=== PATIENT | female | born 1965 | race Caucasian/White ===

== ENCOUNTER 2019-11-21 08:53 | Emergency (ER) | payer MEDICARE, OTHER ==
[2019-11-21] MEDS ORDERED: Amoxicillin/Clavulanate K 875-125 MG Tab ONE (09:28)
[2019-11-21 09:51] VITALS: BP 120/80; PULSE 90
--- NOTE | 2019-11-21 10:15 | EDM.PDOC ---
ED HPI GENERAL MEDICAL PROBLEM - General Chief Complaint: Respiratory Problem Stated Complaint: fever Time Seen by Provider: 11/21/19 09:33 Source of Information: Reports: Patient - History of Present Illness INITIAL COMMENTS - FREE TEXT/NARRATIVE: This patient presents to the ED for evaluation of a cough. She states she has not felt well for the past 4 days and has had a fever at home but it has never been measured. She isn't really able to say how she is feeling different just that she doesn't feel good. She is a heavy smoker and was told recently she had COPD but "she isn't sure about that." She was treated with an antibiotic in July but doesn't know what she had then. She has not had any other recent illnesses. She denies a change in her appetite. She has had no nausea or vomiting but states she has had 2 episodes of diarrhea in the past 48 hours. She is certain that she "has IT" and will . She states she has been isolating at home but then admits to going places and having visitors in her home. Onset: Gradual Onset Date: 11/17/19 Duration: Getting Worse Location: Reports: Chest Severity: Moderate Improves with: Reports: None Worsens with: Reports: Breathing Associated Symptoms: Reports: Fever/Chills, Shortness of Breath. Denies: Nausea /Vomiting - Related Data Allergies Allergy/AdvReac Type Severity Reaction Status Date / Time prednisone Allergy Anaphylactic Verified 11/21/19 09:28 Shock Home Meds: Home Meds Levothyroxine 150 mcg PO DAILY 11/21/19 [History] Mv-Min/Vit C/Glut/Lysine/Hb124 [Airborne Effervescent Tablet] 1 tab PO DAILY 07/30 [History] guaiFENesin [Mucinex] 600 mg PO BID 11/21/19 [History] Past Medical History - Past Health History Medical/Surgical History: Denies Medical/Surgical History Respiratory History: Reports: Bronchitis, Recurrent Social & Family History - Family History Oncologic: Reports: Ovarian, Uterine - Tobacco Use Smoking Status *Q: Current Every Day Smoker Years of Tobacco use: 38 Packs/Tins Daily: 0.5 - Caffeine Use Caffeine Use: Reports: Coffee - Alcohol Use Days Per Week of Alcohol Use: 4 Number of Drinks Per Day: 6 Total Drinks Per Week: 24 - Recreational Drug Use Recreational Drug Use: No ED ROS GENERAL - Review of Systems Review Of Systems: See Below Constitutional: Reports: Fever, Chills HEENT: Denies: Ear Pain, Eye Pain, Throat Pain Respiratory: Reports: Shortness of Breath, Cough. Denies: Wheezing, Sputum Cardiovascular: Denies: Chest Pain GI/Abdominal: Reports: Diarrhea. Denies: Abdominal Pain, Decreased Appetite, Nausea, Vomiting Skin: Reports: No Symptoms Neurological: Reports: No Symptoms ED EXAM, GENERAL - Physical Exam Exam: See Below Exam Limited By: No Limitations General Appearance: Alert, WD/WN, No Apparent Distress Eye Exam: Bilateral Eye: PERRL Ears: Normal External Exam Nose: Normal Inspection, Normal Mucosa, No Blood Throat/Mouth: Normal Inspection Head: Atraumatic, Normocephalic Neck: Normal Inspection, Supple, Non-Tender, Full Range of Motion Respiratory/Chest: No Respiratory Distress, Lungs Clear, Normal Breath Sounds, No Accessory Muscle Use, Chest Non-Tender Cardiovascular: Regular Rate, Rhythm Neurological: Alert, Oriented Skin Exam: Warm, Dry, Intact Course - Vital Signs Last Recorded V/S: Last Vital Signs Temp 37.2 C 11/21/19 09:47 Pulse 90 11/21/19 09:47 Resp 20 11/21/19 09:47 BP 120/80 11/21/19 09:47 Pulse Ox 97 11/21/19 09:47 - Orders/Labs/Meds Orders: Active Orders 24 hr Category Date Time Status CORONAVIRUS COVID-19 PCR PHL Stat Lab 11/21/19 09:57 Ordered INFLUENZA A+B AG, DFA W/RFLX Stat Lab 11/21/19 09:57 Ordered - Re-Assessments/Exams Free Text/Narrative Re-Assessment/Exam: 11/21/19 10:20 This patient presents with complaint of cough. The patient appears well and nontoxic. There is no evidence of any respiratory distress. The patient has normal oxygen saturations with normal work of breathing. A chest x-ray is not indicated considering no tachycardia and a respiratory rate less than 24, no fevers, normal ausculatory exam, and no hypoxia. I did decide to treat here with Augmentin and she was dispensed that medication from the ED. I discussed symptomatic treatment including increased fluids, rest, and the importance of staying isolated at this time. I discussed the need to seek care immediately for any increased difficulty breathing, severe chest pain, high fever or any other new concerns. Primary clinic follow up in 1 week recommended. She left with complete understanding and agreement with this plan and at the time of discharge had no further complaints. Departure - Departure Time of Disposition: 10:10 Disposition: Home, Self-Care 01 Condition: Good Clinical Impression: Bronchitis - Discharge Information Instructions: Amoxicillin; Clavulanic Acid tablets, Upper Respiratory Infection , Adult Forms: ED Department Discharge Care Plan Goals: Self isolate until results of tests are reported to you. Sepsis Event Note - Evaluation Sepsis Screening Result: No Definite Risk - Focused Exam Vital Signs: Vital Signs Temp Pulse Resp BP Pulse Ox 11/21/19 09:47 37.2 C 90 20 120/80 97 Date Exam was Performed: 11/21/19 Time Exam was Performed: 09:59 - My Orders Last 24 Hours: My Active Orders 11/21/19 09:57 CORONAVIRUS COVID-19 PCR PHL Stat INFLUENZA A+B AG, DFA W/RFLX Stat - Assessment/Plan Last 24 Hours: My Active Orders 11/21/19 09:57 CORONAVIRUS COVID-19 PCR PHL Stat INFLUENZA A+B AG, DFA W/RFLX Stat
== END 2019-11-21 10:00 | disposition home or self-care (01) ==
LOC: LB.ED 08:53
DX: J40 Bronchitis, not specified as acute or chronic (principal); F17.210 Nicotine dependence, cigarettes, uncomplicated; Z88.8 Allergy status to other drugs, medicaments and biological substances; Z79.899 Other long term (current) drug therapy
CPT/HCPCS: 87804; 99283; A9270; U0002

== ENCOUNTER 2019-11-29 07:09 | Emergency (ER) | payer MEDICARE, OTHER ==
[2019-11-29] MEDS: Albuterol/Ipratropium 3.0-0.5 MG/3 ML Neb Soln NEB PRN ×2 (07:45→09:15)
[2019-11-29] MEDS ORDERED: Acetaminophen/HYDROcodone 325-5 MG Tab ONE (08:00)
[2019-11-29] MEDS ORDERED: Benzonatate 100 MG Cap ONE (08:00)
[2019-11-29] MEDS ORDERED: Azithromycin 250 MG Tab ONE (08:00)
[2019-11-29 08:02] VITALS: BP 149/91; PULSE 88
[2019-11-29] MEDS ORDERED: Albuterol/Ipratropium 3.0-0.5 MG/3 ML Neb Soln NEB PRN (09:14)
[2019-11-29] MEDS ORDERED: Albuterol/Ipratropium 3.0-0.5 MG/3 ML Neb Soln ONE (09:16)
--- NOTE | 2019-11-29 11:45 | CR ---
DATE OF SERVICE: 11/29/19 CLINICAL DATA: shortness of breath AP CHEST: Comparison is made to a prior exam dated 01/13/18. The heart size is normal. The lungs are clear. No pneumothorax. No pleural effusions. No evidence of acute intrathoracic disease. MTDD
--- NOTE | 2019-12-01 01:29 | EDM.PDOC ---
ED HPI GENERAL MEDICAL PROBLEM - General Chief Complaint: General Stated Complaint: SOB Time Seen by Provider: 11/29/19 08:15 Source of Information: Reports: Patient History Limitations: Reports: No Limitations - History of Present Illness INITIAL COMMENTS - FREE TEXT/NARRATIVE: The patient was evaluated last Friday for similar symptoms. Apparently she has a history of anxiety, and is well and is well-known to the local healthcare system for such. She was evaluated appropriately, and rotavirus swab was obtained. This came back negative. The patient feels like she continues to have gradually worsening tightness in her chest. She notes that she definitely has anxiety. She becomes tearful stating that she feels awful for coming in, and certainly does not want to spread any infection to us, but she has always had issues with what sounds like more of a early COPD type picture with definite response to bronchodilators. She is really had not much in the way of sputum production. She was febrile at some point, and endorses headache, some sensation that she is not able to perform a deep inhalation, and also has some diarrhea at this point. She denies any exertional symptoms, as well as any pleuritic issues. She is very concerned about the community landscape in terms of potential coronavirus issues. Overall, she states that she has just not any better, and is frustrated with being sick, and she would like to try some different treatments. She has a strong preference for ongoing outpatient management. She is reliable to return with any issues. - Related Data Allergies Allergy/AdvReac Type Severity Reaction Status Date / Time prednisone Allergy Anaphylactic Verified 11/21/19 09:28 Shock Home Meds: Home Meds Levothyroxine 150 mcg PO DAILY 11/21/19 [History] Mv-Min/Vit C/Glut/Lysine/Hb124 [Airborne Effervescent Tablet] 1 tab PO DAILY 07/30 [History] guaiFENesin [Mucinex] 600 mg PO BID 11/21/19 [History] Past Medical History - Past Health History Medical/Surgical History: Denies Medical/Surgical History Respiratory History: Reports: Bronchitis, Recurrent Social & Family History - Family History Oncologic: Reports: Ovarian, Uterine - Tobacco Use Smoking Status *Q: Current Every Day Smoker Years of Tobacco use: 38 Packs/Tins Daily: 1 Used Tobacco, but Quit: No Second Hand Smoke Exposure: Yes - Caffeine Use Caffeine Use: Reports: Coffee - Recreational Drug Use Recreational Drug Use: No ED ROS GENERAL - Review of Systems Review Of Systems: Comprehensive ROS is negative, except as noted in HPI. Respiratory: Reports: Shortness of Breath, Wheezing, Cough. Denies: Hemoptysis ED EXAM, GENERAL - Physical Exam Exam: See Below Exam Limited By: No Limitations General Appearance: Alert, WD/WN, No Apparent Distress Eye Exam: Bilateral Eye: EOMI, PERRL Ears: Normal External Exam, Hearing Grossly Normal Nose: Normal Inspection Throat/Mouth: Normal Inspection, Normal Lips, Normal Oropharynx Head: Atraumatic, Normocephalic Neck: Normal Inspection, Supple, Non-Tender, Full Range of Motion. No: Lymphadenopathy (R), Lymphadenopathy (L) Respiratory/Chest: No Respiratory Distress, Lungs Clear, Normal Breath Sounds GI/Abdominal: Normal Bowel Sounds, Soft, Non-Tender Back Exam: Normal Inspection, Full Range of Motion Extremities: Normal Inspection, Normal Range of Motion, No Pedal Edema, Normal Capillary Refill Neurological: Alert, Oriented, CN II-XII Intact, Normal Cognition, No Motor/ Sensory Deficits Psychiatric: Normal Affect, Normal Mood Skin Exam: Warm, Dry Course - Vital Signs Text/Narrative:: Maira presented with symptoms of cough, febrile illness, and headache. Her COVID-19 testing was negative, recognizing that this could certainly be a false negative, appropriate PPE was maintained by staff at all times. I was able to take the history at well greater than 6 feet from the bedside. This actually did not seem to bother the patient all that much. However, when I was gowned in my PAPR in order to auscultate her lungs and continue with appropriate physical examination, this seemed to spark quite a bit of anxiety. After thorough evaluation and consideration of differential diagnosis, this seems to be mainly a COPD exacerbation, but given the potential for COVID-19, steroids were withheld, and antitussive minor measures were provided. She was noted to have significant relief with Tylenol with codeine cough syrup, but because we are out of this, I did try to substitute some oral hydrocodone. Reassurance was given at this time, and she seemed to be accepting of this treatment plan, recognizing that she would be welcome to return for further evaluation with any persistent, worsening or new concerns. Given her multiple presentations, plan to have my clinic nurse contact her via phone to ensure that things are coming along to her satisfaction. Last Recorded V/S: Last Vital Signs Temp 97.3 F 11/29/19 08:00 Pulse 88 11/29/19 08:00 Resp 18 11/29/19 08:00 BP 149/91 H 11/29/19 08:00 Pulse Ox 99 11/29/19 08:00 - Orders/Labs/Meds Orders: Medication Orders Albuterol/Ipratropium (Duoneb 3.0-0.5 Mg/3 Ml) 3 ml NEB Q2H PRN PRN Reason: Shortness of Breath Labs: Laboratory Tests 11/29/19 11/29/19 11/29/19 Range/Units 08:25 08:25 08:25 WBC 8.8 (4.0-11.0) K/uL RBC 4.51 (3.80-5.80) M/uL Hgb 14.7 (11.5-16.5) g/dL Hct 42.1 (37.0-47.0) % MCV 93 (76-96) fL MCH 32.6 H (27.0-32.0) pg MCHC 34.9 (31.0-35.0) g/dL RDW 12.8 (11.0-16.0) % Plt Count 262 (150-500) K/uL MPV 8.1 (6.0-10.0) fL Neut % (Auto) 69.8 (45.0-70.0) % Lymph % (Auto) 24.5 (20.0-40.0) % [place] % (Auto) 4.9 (3.0-10.0) % Eos % (Auto) 0.6 L (1.0-5.0) % Baso % (Auto) 0.2 (0.0-0.5) % Neut # (Auto) 6.17 (2.00-7.50) K/uL Lymph # (Auto) 2.17 (1.50-4.00) K/uL [place] # (Auto) 0.43 (0.20-0.80) K/uL Eos # (Auto) 0.05 (0.04-0.40) K/uL Baso # (Auto) 0.02 (0.02-0.10) K/uL Sodium 142 (136-145) mmol/L Potassium 3.8 (3.5-5.1) mmol/L Chloride 103 (98-107) mmol/L Carbon Dioxide 18.7 L D (21.0-32.0) mmol/L Anion Gap 24.1 H (5.0-15.0) mmol/L BUN 6 L D (8-26) mg/dL Creatinine 0.70 (0.55-1.02) mg/dL Est Cr Clr Drug Dosing 86.01 mL/min Estimated GFR (MDRD) > 60 (>60) MLS/MIN BUN/Creatinine Ratio 8.6 (6-25) Glucose 93 (74-100) mg/dL Calcium 9.2 (8.5-10.1) mg/dL Total Bilirubin 0.5 (0.0-1.0) mg/dL AST 25 (15-37) U/L ALT 27 (12-78) U/L Alkaline Phosphatase 71 (46-116) U/L Troponin I < 0.017 (0.000-0.060) ng/mL C-Reactive Protein 3.9 H (0.0-3.0) mg/L B-Natriuretic Peptide 138 H (0-125) pg/mL Total Protein 7.6 (6.4-8.2) g/dL Albumin 4.2 (3.4-5.0) g/dL Globulin 3.4 (2.2-4.2) g/dL Albumin/Globulin Ratio 1.2 (0.8-2.0) TSH, Ultra Sensitive 1.213 D (0.358-3.740) uIU/mL Meds: Medications Generic Name Dose Route Start Last Admin Trade Name Freq PRN Reason Stop Dose Admin Albuterol/Ipratropium 3 ml 11/29/19 09:14 Duoneb 3.0-0.5 Mg/3 Ml NEB Q2H PRN Shortness of Breath Discontinued Medications Generic Name Dose Route Start Last Admin Trade Name Freq PRN Reason Stop Dose Admin Hydrocodone Bitart/Acetaminophen 10 tab 11/29/19 08:00 [place] 325-5 Mg .ROUTE 11/29/19 08:01 .STK-MED ONE Albuterol/Ipratropium 3 ml 11/29/19 07:52 11/29/19 09:15 Duoneb 3.0-0.5 Mg/3 Ml NEB 3 ml Q2H PRN Administration Shortness of Breath Albuterol/Ipratropium Confirm 11/29/19 09:16 Duoneb 3.0-0.5 Mg/3 Ml Administered 11/29/19 09:17 Dose 6 ml .ROUTE .STK-MED ONE Azithromycin 1,500 mg 11/29/19 08:00 Zithromax .ROUTE 11/29/19 08:01 .STK-MED ONE Benzonatate 1,000 mg 11/29/19 08:00 Tessalon Perles .ROUTE 11/29/19 08:01 .STK-MED ONE Departure - Departure Time of Disposition: 09:00 Disposition: Home, Self-Care 01 Clinical Impression: Cough - Discharge Information Instructions: Viral Respiratory Infection, [id number] Referrals: PCP,None [Primary Care Provider] - Forms: ED Department Discharge Care Plan Goals: Take medications as prescribed. Return to hospital or clinic if symptoms worsen or no improvement noted. Sepsis Event Note - Evaluation Sepsis Screening Result: No Definite Risk
== END 2019-11-29 10:29 | disposition home or self-care (01) ==
LOC: LB.ED 07:09
DX: R05 Cough (principal); F17.210 Nicotine dependence, cigarettes, uncomplicated; Z79.899 Other long term (current) drug therapy; Z88.8 Allergy status to other drugs, medicaments and biological substances
CPT/HCPCS: 36415; 71045; 80053; 83880; 84443; 84484; 85025; 86140; 93005; 99284; A9270; 99285-25; J7620-GY

== ENCOUNTER 2020-02-29 08:18 | Emergency (ER) | payer MEDICARE ==
[2020-02-29 09:43] VITALS: BP 136/88; PULSE 74
[2020-02-29] MEDS ORDERED: Albuterol 0.083% 2.5 MG/3 ML Neb Soln NEB ONE (10:05)
[2020-02-29] MEDS ORDERED: Albuterol 0.083% 2.5 MG/3 ML Neb Soln ONE (10:12)
--- NOTE | 2020-02-29 10:17 | EDM.PDOC ---
ED HPI GENERAL MEDICAL PROBLEM - General Chief Complaint: General Stated Complaint: UNKNOWN Time Seen by Provider: 02/29/20 09:45 Source of Information: Reports: Patient History Limitations: Reports: No Limitations - History of Present Illness INITIAL COMMENTS - FREE TEXT/NARRATIVE: Patient presents emergency department with symptoms of being feverish, intermittent chills, increasing shortness of breath and fatigue over the last 3 days. T-max at home 99. Patient provides that she borrowed a friend's prescription of amoxicillin because she believes she had a bacterial infection. patient states medical history significant for COPD, chronic cough. Patient has a history of At least [id number] smoking - Related Data Allergies Allergy/AdvReac Type Severity Reaction Status Date / Time prednisone Allergy Anaphylactic Verified 02/29/20 09:38 Shock Home Meds: Home Meds Levothyroxine 150 mcg PO DAILY 11/21/19 [History] Mv-Min/Vit C/Glut/Lysine/Hb124 [Airborne Effervescent Tablet] 1 tab PO DAILY 11/21/19 [History] Albuterol [Proventil HFA] 200 puff INH QID #1 inhaler 02/29/20 [Rx] Budesonide [Pulmicort Flexhaler] 2 puff IH BID #1 inhaler 02/29/20 [Rx] Nitrofurantoin Monohyd/M-Cryst [Macrobid 100 mg Capsule] 100 mg PO BID 5 Days #10 capsule 02/29/20 [Rx] Past Medical History - Past Health History Medical/Surgical History: Denies Medical/Surgical History HEENT History: Reports: Impaired Vision Respiratory History: Reports: Bronchitis, Recurrent, COPD 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 ED EXAM, GENERAL - Physical Exam Exam: See Below Exam Limited By: No Limitations General Appearance: Alert, WD/WN, No Apparent Distress Head: Atraumatic, Normocephalic Neck: Normal Inspection Cardiovascular: Normal Peripheral Pulses, Regular Rate, Rhythm, No Edema, No Murmur, No Rub Peripheral Pulses: 2+: Radial (L), Radial (R) Extremities: Normal Inspection, Normal Range of Motion, Non-Tender Neurological: Alert, Oriented, CN II-XII Intact, Normal Cognition, Normal Gait Psychiatric: Normal Affect, Normal Mood Skin Exam: Warm, Dry, Intact Course - Vital Signs Last Recorded V/S: Last Vital Signs Temp 98 F 02/29/20 09:45 Pulse 74 02/29/20 09:45 Resp 20 02/29/20 09:45 BP 136/88 02/29/20 09:45 Pulse Ox 100 02/29/20 09:45 - Orders/Labs/Meds Orders: Active Orders 24 hr Category Date Time Status RT Aerosol Therapy [RC] ASDIRECTED Care 02/29/20 10:06 Ordered Chest 2V [CR] Stat Exams 02/29/20 10:05 Ordered CBC WITH AUTO DIFF [HEME] Stat Lab 02/29/20 10:04 Ordered COMPREHENSIVE METABOLIC PN,CMP [CHEM] Stat Lab 02/29/20 10:04 Ordered UA RFX GABI AND CULT IF INDIC [URIN] Stat Lab 02/29/20 10:05 Ordered Albuterol [Proventil Neb Soln] Med 02/29/20 10:05 Once 2.5 mg NEB ONETIME ONE Labs: Laboratory Tests 02/29/20 Range/Units 08:25 COVID-19 (RANDY) Negative Departure - Departure Time of Disposition: 11:20 Disposition: Home, Self-Care 01 Condition: Good Clinical Impression: Bronchitis, Cystitis - Discharge Information *PRESCRIPTION DRUG MONITORING PROGRAM REVIEWED*: Not Applicable *COPY OF PRESCRIPTION DRUG MONITORING REPORT IN PATIENT CRISTOBAL: Not Applicable Prescriptions: Nitrofurantoin Monohyd/M-Cryst [Macrobid 100 mg Capsule] 100 mg PO BID 5 Days #10 capsule Albuterol [Proventil HFA] 200 puff INH QID #1 inhaler Budesonide [Pulmicort Flexhaler] 2 puff IH BID #1 inhaler Instructions: How to Use a Metered Dose Inhaler Referrals: PCP,None [Primary Care Provider] - Additional Instructions: urinary infection today. macrobid is the antibiotic we will prescribe. inhaler for use as needed for shortness of breath (albuterol) inhaler for use twice a day, every day (budosenide) that is the steriod inhaler that works on lungs only, breathing should improve over the long run if you use this medication every day. no pneumonia on chest xray Sepsis Event Note (ED) - Evaluation Sepsis Screening Result: No Definite Risk - Focused Exam Vital Signs: Vital Signs Temp Pulse Resp BP Pulse Ox 02/29/20 09:45 98 F 74 20 136/88 100 02/29/20 09:42 98 F 74 20 136/88 100 - Problem List & Annotations (1) Bronchitis SNOMED Code(s): 82553971 Code(s): J40 - BRONCHITIS, NOT SPECIFIED ACUTE OR CHRONIC Status: Acute Current Visit: Yes (2) Cystitis SNOMED Code(s): 40817211 Code(s): N30.90 - CYSTITIS, UNSPECIFIED WITHOUT HEMATURIA Status: Acute Current Visit: Yes - Problem List Review Problem List Initiated/Reviewed/Updated: Yes - My Orders Last 24 Hours: My Active Orders 02/29/20 10:04 CBC WITH AUTO DIFF [HEME] Stat COMPREHENSIVE METABOLIC PN,CMP [CHEM] Stat 02/29/20 10:05 Chest 2V [CR] Stat UA RFX GABI AND CULT IF INDIC [URIN] Stat Albuterol [Proventil Neb Soln] 2.5 mg NEB ONETIME ONE 02/29/20 10:06 RT Aerosol Therapy [RC] ASDIRECTED - Assessment/Plan Last 24 Hours: My Active Orders 02/29/20 10:04 CBC WITH AUTO DIFF [HEME] Stat COMPREHENSIVE METABOLIC PN,CMP [CHEM] Stat 02/29/20 10:05 Chest 2V [CR] Stat UA RFX GABI AND CULT IF INDIC [URIN] Stat Albuterol [Proventil Neb Soln] 2.5 mg NEB ONETIME ONE 02/29/20 10:06 RT Aerosol Therapy [RC] ASDIRECTED Assessment:: assessment: bronchitis cystitis with hematuria plan: macrobid 5 days covid negative albuterol INH with spacer new budesonide INH this pt was evaluated in the context of COVID-19 pandemic Differentials considered were pneumonia, exacerbation of chronic bronchitis/COPD, COVID-19.
--- NOTE | 2020-02-29 22:43 | CR ---
CLINICAL DATA: Cough, SOB. PA AND LATERAL CHEST, 29 FEBRUARY 2020: Comparison is made to a prior exam dated 29 November 2019. Heart size is normal. The aorta is ectatic. The lungs are mildly hyperexpanded, but clear. No pneumothorax. No pleural effusions. No evidence of acute intrathoracic disease. Job: [id number] MTDD
== END 2020-02-29 11:32 | disposition home or self-care (01) ==
LOC: LB.ED 08:18
DX: J40 Bronchitis, not specified as acute or chronic (principal); N30.90 Cystitis, unspecified without hematuria; Z20.828 Contact with and (suspected) exposure to other viral communicable diseases; E03.9 Hypothyroidism, unspecified; J44.9 Chronic obstructive pulmonary disease, unspecified; F17.210 Nicotine dependence, cigarettes, uncomplicated; Z88.8 Allergy status to other drugs, medicaments and biological substances; Z79.899 Other long term (current) drug therapy
CPT/HCPCS: 36415; 71046; 80053; 81001; 85025; 87086; 99284; 99284-25; U0002

== ENCOUNTER 2020-04-10 05:48 | Emergency (ER) | payer MEDICARE, OTHER ==
--- NOTE | 2020-04-10 07:27 | EDM.PDOC ---
ED HPI GENERAL MEDICAL PROBLEM - General Chief Complaint: Respiratory Problem Stated Complaint: SHORTNESS OF BREATH Time Seen by Provider: 04/10/20 07:05 Source of Information: Reports: Patient History Limitations: Reports: No Limitations - History of Present Illness INITIAL COMMENTS - FREE TEXT/NARRATIVE: Patient states she has had SOB, anxiety, and "just not feeling well" since March 21. She has had 4 negative COVID swabs, with the 5th negative today. Her symptoms have not increased, but she is concerned because they have not improved. 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 - Related Data Allergies Allergy/AdvReac Type Severity Reaction Status Date / Time prednisone Allergy Anaphylactic Verified 02/29/20 09:38 Shock Home Meds: Home Meds Levothyroxine 150 mcg PO DAILY 11/21/19 [History] Mv-Min/Vit C/Glut/Lysine/Hb124 [Airborne Effervescent Tablet] 1 tab PO DAILY 11/21/19 [History] Albuterol [Proventil HFA] 200 puff INH QID #1 inhaler 02/29/20 [Rx] Budesonide [Pulmicort Flexhaler] 2 puff IH BID #1 inhaler 02/29/20 [Rx] Nitrofurantoin Monohyd/M-Cryst [Macrobid 100 mg Capsule] 100 mg PO BID 5 Days #10 capsule 02/29/20 [Rx] Past Medical History - Past Health History Medical/Surgical History: Denies Medical/Surgical History HEENT History: Reports: Impaired Vision Respiratory History: Reports: Bronchitis, Recurrent, COPD 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: Psychiatric History: Reports: Anxiety Endocrine/Metabolic History: Reports: Hypothyroidism Social & Family History - Family History Family Medical History: Noncontributory Oncologic: Reports: Ovarian, Uterine - Caffeine Use Caffeine Use: Reports: Coffee ED ROS GENERAL - Review of Systems Review Of Systems: Unable To Obtain Reason Not Obtained: patient signed out AMA ED EXAM, GENERAL - Physical Exam Exam: Not Obtained Course - Orders/Labs/Meds Labs: Laboratory Tests 04/10/20 Range/Units 06:30 COVID-19 (RANDY) Negative Departure - Departure Time of Disposition: 08:18 Disposition: Against Medical Advice 07 Clinical Impression: Anxiety - Discharge Information *PRESCRIPTION DRUG MONITORING PROGRAM REVIEWED*: Not Applicable *COPY OF PRESCRIPTION DRUG MONITORING REPORT IN PATIENT CRISTOBAL: Not Applicable Forms: ED Department Discharge
== END 2020-04-10 07:40 | disposition left against medical advice (07) ==
LOC: LB.ED 05:48
DX: F41.9 Anxiety disorder, unspecified (principal); J44.9 Chronic obstructive pulmonary disease, unspecified; E03.9 Hypothyroidism, unspecified; Z88.8 Allergy status to other drugs, medicaments and biological substances; Z79.899 Other long term (current) drug therapy; Z20.828 Contact with and (suspected) exposure to other viral communicable diseases
CPT/HCPCS: 99284; U0002

== ENCOUNTER 2020-04-29 09:18 | Emergency (ER) | payer MEDICARE, OTHER ==
[2020-04-29] MEDS ORDERED: Cephalexin 500 MG Cap ONE (09:20)
[2020-04-29 09:31] VITALS: BP 166/86; PULSE 73
--- NOTE | 2020-04-29 10:44 | EDM.PDOC ---
ED HPI GENERAL MEDICAL PROBLEM - General Chief Complaint: General Stated Complaint: SORE THROAT, ABD PAIN, HEADACHE Time Seen by Provider: 04/29/20 09:50 Source of Information: Reports: Patient, RN History Limitations: Reports: No Limitations - History of Present Illness INITIAL COMMENTS - FREE TEXT/NARRATIVE: patient presents with intermittent CP, SOB, fevers, body aches, diarrhea, sore throat. She has had 4 negative COVID tests since November, she is very anxious and fears that she has COVID although the symptoms have not changed or increased since November. She takes tylenol daily without relief of her symptoms. She states she will have 2-3 symptom free days, then they return. Multiple ABX since November. Patient smokes 8 cigarettes daily, and has only an occasional coug h. Severity: Mild Associated Symptoms: Reports: Fever/Chills, Shortness of Breath Bilateral Upper Arm Pain Score (Numeric/FACES): 3 - Related Data Allergies Allergy/AdvReac Type Severity Reaction Status Date / Time prednisone Allergy Anaphylactic Verified 02/29/20 09:38 Shock Home Meds: Home Meds Levothyroxine 150 mcg PO DAILY 11/21/19 [History] Mv-Min/Vit C/Glut/Lysine/Hb124 [Airborne Effervescent Tablet] 1 tab PO DAILY 11/21/19 [History] Albuterol [Proventil HFA] 200 puff INH QID #1 inhaler 02/29/20 [Rx] Budesonide [Pulmicort Flexhaler] 2 puff IH BID #1 inhaler 02/29/20 [Rx] LORazepam [Ativan] 0.5 mg PO BID PRN 04/29/20 [History] Past Medical History - Past Health History Medical/Surgical History: Denies Medical/Surgical History HEENT History: Reports: Impaired Vision Respiratory History: Reports: Bronchitis, Recurrent, COPD COMPRESSED GASES TESTER History: Reports: Psychiatric History: Reports: Anxiety Endocrine/Metabolic History: Reports: Hypothyroidism Social & Family History - Family History Family Medical History: Noncontributory Oncologic: Reports: Ovarian, Uterine - Tobacco Use Smoking Status *Q: Current Every Day Smoker Years of Tobacco use: 40 Packs/Tins Daily: 1 - Caffeine Use Caffeine Use: Reports: Coffee - Recreational Drug Use Recreational Drug Use: No ED ROS GENERAL - Review of Systems Review Of Systems: See Below Constitutional: Reports: No Symptoms HEENT: Reports: No Symptoms Respiratory: Reports: Shortness of Breath Cardiovascular: Reports: Dyspnea on Exertion Endocrine: Reports: No Symptoms GI/Abdominal: Reports: No Symptoms : Reports: No Symptoms Musculoskeletal: Reports: No Symptoms Skin: Reports: No Symptoms Neurological: Reports: Headache Psychiatric: Reports: No Symptoms ED EXAM, GENERAL - Physical Exam Exam: See Below Exam Limited By: No Limitations General Appearance: Alert, No Apparent Distress Eye Exam: Bilateral Eye: PERRL Ears: Normal External Exam, Normal Canal, Normal TMs Nose: Normal Inspection, Normal Mucosa, No Blood Throat/Mouth: Normal Inspection, Normal Lips, Normal Teeth, Normal Gums, Normal Oropharynx, No Airway Compromise Head: Atraumatic Neck: Normal Inspection, Full Range of Motion. No: Lymphadenopathy (R), Lymphadenopathy (L) Respiratory/Chest: No Respiratory Distress, Lungs Clear, Normal Breath Sounds, No Accessory Muscle Use Cardiovascular: Normal Peripheral Pulses, Regular Rate, Rhythm, No Edema, No Murmur GI/Abdominal: Normal Bowel Sounds, Soft, Non-Tender Back Exam: Normal Inspection, Full Range of Motion Extremities: Normal Inspection, Normal Range of Motion, Non-Tender, No Pedal Edema, Normal Capillary Refill Neurological: Alert, Oriented, Normal Cognition, Normal Gait, No Motor/Sensory Deficits Psychiatric: Normal Affect, Normal Mood, Anxious Skin Exam: Warm, Dry, Intact. No: Rash Lymphatic: No Adenopathy Course - Vital Signs Last Recorded V/S: Last Vital Signs Temp 99 F 04/29/20 10:58 Pulse 73 04/29/20 09:27 Resp 18 04/29/20 09:27 BP 166/86 H 04/29/20 09:27 Pulse Ox 99 04/29/20 09:27 - Orders/Labs/Meds Orders: Active Orders 24 hr Category Date Time Status EKG Documentation Completion [RC] ASDIRECTED Care 04/29/20 10:09 Active Chest 1V Frontal [CR] Stat Exams 04/29/20 10:08 Taken CULTURE URINE [RM] Stat Lab 04/29/20 10:20 Received STREP SCREEN A RAPID [RM] Stat Lab 04/29/20 10:25 Ordered THYROXINE (T4) FREE, DIRECT, S Stat Lab 04/29/20 10:25 Ordered EKG 12 Lead [EK] Routine Ther 04/29/20 10:08 Ordered Labs: Laboratory Tests 04/29/20 04/29/20 04/29/20 Range/Units 10:20 10:20 10:35 WBC 6.6 (4.0-11.0) K/uL RBC 4.23 (3.80-5.80) M/uL Hgb 14.0 (11.5-16.5) g/dL Hct 40.9 (37.0-47.0) % MCV 97 H (76-96) fL MCH 33.1 H (27.0-32.0) pg MCHC 34.2 (31.0-35.0) g/dL RDW 12.6 (11.0-16.0) % Plt Count 236 (150-500) K/uL MPV 8.3 (6.0-10.0) fL Neut % (Auto) 67.1 (45.0-70.0) % Lymph % (Auto) 25.3 (20.0-40.0) % [place] % (Auto) 6.2 (3.0-10.0) % Eos % (Auto) 1.1 (1.0-5.0) % Baso % (Auto) 0.3 (0.0-0.5) % Neut # (Auto) 4.43 (2.00-7.50) K/uL Lymph # (Auto) 1.67 (1.50-4.00) K/uL [place] # (Auto) 0.41 (0.20-0.80) K/uL Eos # (Auto) 0.07 (0.04-0.40) K/uL Baso # (Auto) 0.02 (0.02-0.10) K/uL Sodium 138 (136-145) mmol/L Potassium 4.0 (3.5-5.1) mmol/L Chloride 104 (98-107) mmol/L Carbon Dioxide 24.9 (21.0-32.0) mmol/L Anion Gap 13.1 (5.0-15.0) mmol/L BUN 12 (8-26) mg/dL Creatinine 0.76 (0.55-1.02) mg/dL Est Cr Clr Drug Dosing 78.30 mL/min Estimated GFR (MDRD) > 60 (>60) MLS/MIN BUN/Creatinine Ratio 15.8 (6-25) Glucose 103 H (74-100) mg/dL Calcium 9.0 (8.5-10.1) mg/dL Total Bilirubin 0.6 (0.0-1.0) mg/dL AST 18 (15-37) U/L ALT 22 (12-78) U/L Alkaline Phosphatase 66 (46-116) U/L Troponin I < 0.017 (0.000-0.060) ng/mL Total Protein 7.1 (6.4-8.2) g/dL Albumin 3.8 (3.4-5.0) g/dL Globulin 3.3 (2.2-4.2) g/dL Albumin/Globulin Ratio 1.2 (0.8-2.0) TSH, Ultra Sensitive (0.358-3.740) uIU/mL Urine Color Yellow Urine Appearance Clear (CLEAR) Urine pH 7.0 (5.0-8.0) Ur Specific [place] 1.015 (1.003-1.030) Urine Protein Negative (NEGATIVE) mg/dL Urine Glucose (UA) Negative (NEGATIVE) mg/dL Urine Ketones Negative (NEGATIVE) mg/dL Urine Occult Blood Negative (NEGATIVE) Urine Nitrite Negative (NEGATIVE) Urine Bilirubin Negative (NEGATIVE) Urine Urobilinogen 0.2 (0.2-1.0) E.U./dL Ur Leukocyte Esterase Small H (NEGATIVE) Urine RBC Not Reportable Urine WBC 5-10 H /HPF Ur Epithelial Cells Few /HPF Urine Bacteria Rare /HPF SARS CoV-2 RNA Rapid RANDY 04/29/20 04/29/20 Range/Units 10:45 11:10 WBC (4.0-11.0) K/uL RBC (3.80-5.80) M/uL Hgb (11.5-16.5) g/dL Hct (37.0-47.0) % MCV (76-96) fL MCH (27.0-32.0) pg MCHC (31.0-35.0) g/dL RDW (11.0-16.0) % Plt Count (150-500) K/uL MPV (6.0-10.0) fL Neut % (Auto) (45.0-70.0) % Lymph % (Auto) (20.0-40.0) % [place] % (Auto) (3.0-10.0) % Eos % (Auto) (1.0-5.0) % Baso % (Auto) (0.0-0.5) % Neut # (Auto) (2.00-7.50) K/uL Lymph # (Auto) (1.50-4.00) K/uL [place] # (Auto) (0.20-0.80) K/uL Eos # (Auto) (0.04-0.40) K/uL Baso # (Auto) (0.02-0.10) K/uL Sodium (136-145) mmol/L Potassium (3.5-5.1) mmol/L Chloride (98-107) mmol/L Carbon Dioxide (21.0-32.0) mmol/L Anion Gap (5.0-15.0) mmol/L BUN (8-26) mg/dL Creatinine (0.55-1.02) mg/dL Est Cr Clr Drug Dosing mL/min Estimated GFR (MDRD) (>60) MLS/MIN BUN/Creatinine Ratio (6-25) Glucose (74-100) mg/dL Calcium (8.5-10.1) mg/dL Total Bilirubin (0.0-1.0) mg/dL AST (15-37) U/L ALT (12-78) U/L Alkaline Phosphatase (46-116) U/L Troponin I (0.000-0.060) ng/mL Total Protein (6.4-8.2) g/dL Albumin (3.4-5.0) g/dL Globulin (2.2-4.2) g/dL Albumin/Globulin Ratio (0.8-2.0) TSH, Ultra Sensitive 1.580 D (0.358-3.740) uIU/mL Urine Color Urine Appearance (CLEAR) Urine pH (5.0-8.0) Ur Specific [place] (1.003-1.030) Urine Protein (NEGATIVE) mg/dL Urine Glucose (UA) (NEGATIVE) mg/dL Urine Ketones (NEGATIVE) mg/dL Urine Occult Blood (NEGATIVE) Urine Nitrite (NEGATIVE) Urine Bilirubin (NEGATIVE) Urine Urobilinogen (0.2-1.0) E.U./dL Ur Leukocyte Esterase (NEGATIVE) Urine RBC Urine WBC /HPF Ur Epithelial Cells /HPF Urine Bacteria /HPF SARS CoV-2 RNA Rapid RANDY Negative Departure - Departure Time of Disposition: 11:45 Disposition: Home, Self-Care 01 Clinical Impression: Anxiety, UTI, Urinary tract infectious disease UTI (urinary tract infection) Qualifiers: Urinary tract infection type: acute cystitis Hematuria presence: without hematuria Qualified Code(s): N30.00 - Acute cystitis without hematuria - Discharge Information *PRESCRIPTION DRUG MONITORING PROGRAM REVIEWED*: Not Applicable *COPY OF PRESCRIPTION DRUG MONITORING REPORT IN PATIENT CRISTOBAL: Not Applicable Instructions: Urinary Tract Infection, Adult, [id number], Living With Anxiety Referrals: PCP,None [Primary Care Provider] - Forms: ED Department Discharge Additional Instructions: take the cephalexin every 12 hours for 7 days. Drink plenty of fluids. Follow up with Dr. Butler Friday as planned, discuss anxiety medications. Your T4 thyroid results should be resulted then. Return to ED for any increased or new concerning symptoms. Sepsis Event Note (ED) - Evaluation Sepsis Screening Result: No Definite Risk - Focused Exam Vital Signs: Vital Signs Temp Pulse Resp BP Pulse Ox 04/29/20 10:58 99 F 04/29/20 09:27 99.1 F 73 18 166/86 H 99 - My Orders Last 24 Hours: My Active Orders 04/29/20 10:08 Chest 1V Frontal [CR] Stat EKG 12 Lead [EK] Routine 04/29/20 10:09 EKG Documentation Completion [RC] ASDIRECTED 04/29/20 10:20 CULTURE URINE [RM] Stat 04/29/20 10:25 STREP SCREEN A RAPID [RM] Stat THYROXINE (T4) FREE, DIRECT, S Stat - Assessment/Plan Last 24 Hours: My Active Orders 04/29/20 10:08 Chest 1V Frontal [CR] Stat EKG 12 Lead [EK] Routine 04/29/20 10:09 EKG Documentation Completion [RC] ASDIRECTED 04/29/20 10:20 CULTURE URINE [RM] Stat 04/29/20 10:25 STREP SCREEN A RAPID [RM] Stat THYROXINE (T4) FREE, DIRECT, S Stat
--- NOTE | 2020-04-29 17:30 | CR ---
CLINICAL DATA: Cough. AP CHEST, 2019: Comparison made to a prior exam dated 29 February 2020. The heart size is normal. There is calcification of the aortic arch. There is mild eventration of the left hemidiaphragm and increased density in the left lung base, consistent with basilar atelectasis. The lungs are otherwise clear. No pneumothorax. No pleural effusions. No other significant findings. Job: [id number] MTDD
== END 2020-04-29 11:43 | disposition home or self-care (01) ==
LOC: LB.ED 09:18
DX: N30.00 Acute cystitis without hematuria (principal); F41.9 Anxiety disorder, unspecified; J02.9 Acute pharyngitis, unspecified; J44.9 Chronic obstructive pulmonary disease, unspecified; E03.9 Hypothyroidism, unspecified; Z20.828 Contact with and (suspected) exposure to other viral communicable diseases; F17.210 Nicotine dependence, cigarettes, uncomplicated; Z88.8 Allergy status to other drugs, medicaments and biological substances; Z79.899 Other long term (current) drug therapy
CPT/HCPCS: 36415; 71045; 80053; 81001; 84439; 84443; 84484; 85025; 87086; 93005; 99283; 99285-25; A9270-GY; U0002

== ENCOUNTER 2020-07-13 04:51 | Emergency (ER) | payer MEDICARE ==
[2020-07-13 05:15] VITALS: BP 139/99; PULSE 79
--- NOTE | 2020-07-13 08:57 | CT ---
DATE OF SERVICE: 07/13/2020 CLINICAL DATA: Abdominal pain Unenhanced abdomen and pelvic CT: Multi slice acquisition through the abdomen and pelvis without IV but with oral contrast was performed. Comparison is made to a prior exam dated 05 May 2020. There are minimal atelectatic changes in the dependent portion of both lower lungs. The lung bases are otherwise clear. The heart size is normal. The liver size is normal. There is a calcified nodule within the right lobe of the liver consistent with prior granulomatous disease. The liver otherwise appears normal. Gallbladder appears normal. No calcified gallstones. Spleen appears normal. There is a nodule adjacent to the spleen consistent with an accessory spleen. The pancreas appears normal. The right and left adrenals appear normal. No nephrocalcinosis or nephrolithiasis. There are stable low-density lesions in both kidneys consistent with bilateral renal cysts. No hydronephrosis or hydroureter. The bladder is fluid filled. It appears normal. No evidence of appendicitis. There is diverticulosis of the descending and sigmoid colon. No evidence of diverticulitis. There is a moderate amount of stool noted within the ascending and transverse colon. There are a few scattered air-fluid levels within the ascending and transverse colon. Colitis should be considered. No free air. No free fluid. No adenopathy. No aortic aneurysm. There is degenerative disc disease at multiple levels in the lower thoracic and lumbar spine. MTDD
--- NOTE | 2020-07-13 12:14 | ER ---
HISTORY OF PRESENT ILLNESS: A 54-year-old lady who comes into the emergency room with complaints of abdominal pain that has been ongoing since last spring or December she tells me. She is pointing to the epigastric area when describing the area of discomfort. She feels it goes through to her back. She states that it is an aching pain, at times it gets a little worse, other times it is seems better. She has been taking [id number] medications as needed for pain control. She feels tired and has noticed a definite loss of appetite. She is concerned about cancer. The patient has been seen multiple times previously. Lab work has been done. A CT of the abdomen without contrast was done without any definitive findings. The patient states that she has some symptoms with her tongue, it is discolored, it is black she tells me, she has had this evaluated and had a lesion on the vocal cords biopsied. The patient has not been coughing. Has no problems with shortness of breath or chest pain. She tells me that the only medicine she really takes is for her thyroid. OBJECTIVE: GENERAL APPEARANCE: The patient is awake and alert. No obvious distress. VITAL SIGNS: Reviewed. She is afebrile. Blood pressure 139/99, O2 saturations 98% on room air. LUNGS: Clear. ABDOMEN: Soft. There is no tenderness with palpation throughout the epigastric area and the patient tells me this has been the way it has been the whole time. Bowel sounds are present, but hypoactive. HEENT: Oral mucous membranes moist. The superior surface of the patient's tongue has a brownish coloration to it without fissures. Pharynx not inflamed. SKIN: Warm and dry. LAB AND X-RAY STUDIES: Labs done today include a CBC, basic metabolic panel, lipase, TSH, amylase and UA. Lab results are all basically normal. White count is 8.0. Kidney function is good. TSH is 0.996. Lipase is 95. I do not see an amylase yet that is pending. UA also shows just some subtle abnormalities, 10-20 wbc's, a few bacteria. DIAGNOSIS: Abdominal pain, chronic in nature. TREATMENT PLAN: I had a conversation with the patient. She should have another CT with contrast. This will be scheduled to be done later this morning. She was given contrast to take home and drink, it will take an hour after this to have before she has the CT. This will be scheduled for this morning. She has been following with Dr. Butler, he is her primary care provider. I will call him and inform him of where we are at with our current workup and see if he can get the CT results to his office for review and he can assume care for the patient at that time. Since my shift will be ending this morning and the patient is in no acute abdominal distress and she is stable at this time. The patient is agreeable with this treatment plan. OVIDIO/MODAlina /[id number]
== END 2020-07-13 06:15 | disposition home or self-care (01) ==
LOC: LB.ED 04:51
DX: R10.13 Epigastric pain (principal); G89.29 Other chronic pain
CPT/HCPCS: 36415; 74176; 80053; 81001; 82150; 83690; 84443; 85025; 99283; 99284-25

== ENCOUNTER 2020-07-27 07:28 | Emergency (ER) | payer MEDICARE ==
[2020-07-27] MEDS: GI Cocktail Oral Solution 30 ML PO ONE (07:55)
--- NOTE | 2020-07-27 08:02 | EDM.PDOC ---
ED HPI GENERAL MEDICAL PROBLEM - General Chief Complaint: Abdominal Pain Stated Complaint: NOT FEELING WELL Time Seen by Provider: 07/27/20 07:45 Source of Information: Reports: Patient History Limitations: Reports: No Limitations - History of Present Illness INITIAL COMMENTS - FREE TEXT/NARRATIVE: Patient presents with the same abdominal pain she has been having for months. S he states that the pain has not changed or increased, it just hasn't gone away. + nausea, + periumbillical, epigastric pain. She has been taking tylenol at home with some relief. She has a endoscopy/colonscopy next in [place]. Denies any urinary issues, CP, cough, Fever, or vomiting. She has been able to eat and drink fluids. Duration: Constant Quality: Reports: Same as Previous Episode Severity: Moderate Improves with: Reports: None Worsens with: Reports: None Associated Symptoms: Reports: No Other Symptoms - Related Data Allergies Allergy/AdvReac Type Severity Reaction Status Date / Time prednisone Allergy Anaphylactic Verified 02/29/20 09:38 Shock Home Meds: Home Meds Levothyroxine 150 mcg PO DAILY 11/21/19 [History] LORazepam [Ativan] 0.5 mg PO BID PRN 04/29/20 [History] Past Medical History - Past Health History Medical/Surgical History: Denies Medical/Surgical History HEENT History: Reports: Impaired Vision Respiratory History: Reports: Bronchitis, Recurrent, COPD Gastrointestinal History: Reports: Gastritis 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: Psychiatric History: Reports: Anxiety Endocrine/Metabolic History: Reports: Hypothyroidism Social & Family History - Family History Family Medical History: No Pertinent Family History Oncologic: Reports: Ovarian, Uterine - Caffeine Use Caffeine Use: Reports: None ED ROS GENERAL - Review of Systems Review Of Systems: See Below Constitutional: Reports: No Symptoms HEENT: Reports: No Symptoms Respiratory: Reports: No Symptoms Cardiovascular: Reports: No Symptoms Endocrine: Reports: No Symptoms GI/Abdominal: Reports: Abdominal Pain, Constipation, Diarrhea : Reports: No Symptoms Musculoskeletal: Reports: No Symptoms Skin: Reports: No Symptoms Neurological: Reports: No Symptoms Psychiatric: Reports: No Symptoms Hematologic/Lymphatic: Reports: No Symptoms Immunologic: Reports: No Symptoms ED EXAM, GI/ABD - Physical Exam Exam: See Below Exam Limited By: No Limitations General Appearance: Alert, No Apparent Distress, Anxious Eyes: Bilateral: Normal Appearance Ears: Normal External Exam Respiratory/Chest: No Respiratory Distress, Lungs Clear, Normal Breath Sounds Cardiovascular: Normal Peripheral Pulses, Regular Rate, Rhythm, No Edema, No JVD, No Murmur GI/Abdominal Exam: Normal Bowel Sounds, Tender. No: Rigid, Mass, Hepatomegaly, Splenomegaly Back Exam: Normal Inspection, Full Range of Motion. No: CVA Tenderness (R), CVA Tenderness (L) Extremities: Normal Inspection, Normal Range of Motion, Non-Tender Neurological: Alert, Oriented, Normal Cognition, Normal Gait, No Motor/Sensory Deficits Psychiatric: Normal Mood, Anxious Skin Exam: Warm, Dry, Intact Lymphatic: No Adenopathy Course - Vital Signs Last Recorded V/S: Last Vital Signs Temp 99.1 F 07/27/20 08:02 Pulse 86 07/27/20 08:02 Resp 18 07/27/20 08:02 BP 135/83 07/27/20 08:02 Pulse Ox 100 07/27/20 08:02 - Orders/Labs/Meds Labs: Laboratory Tests 07/27/20 07/27/20 07/27/20 Range/Units 07:45 07:45 08:05 WBC 9.6 (4.0-11.0) K/uL RBC 4.29 (3.80-5.80) M/uL Hgb 14.3 (11.5-16.5) g/dL Hct 41.6 (37.0-47.0) % MCV 97 H (76-96) fL MCH 33.3 H (27.0-32.0) pg MCHC 34.4 (31.0-35.0) g/dL RDW 12.5 (11.0-16.0) % Plt Count 272 (150-500) K/uL MPV 8.2 (6.0-10.0) fL Neut % (Auto) 76.3 H (45.0-70.0) % Lymph % (Auto) 18.2 L (20.0-40.0) % [place] % (Auto) 5.0 (3.0-10.0) % Eos % (Auto) 0.3 L (1.0-5.0) % Baso % (Auto) 0.2 (0.0-0.5) % Neut # (Auto) 7.29 (2.00-7.50) K/uL Lymph # (Auto) 1.74 (1.50-4.00) K/uL [place] # (Auto) 0.48 (0.20-0.80) K/uL Eos # (Auto) 0.03 L (0.04-0.40) K/uL Baso # (Auto) 0.02 (0.02-0.10) K/uL Sodium 139 (136-145) mmol/L Potassium 3.6 (3.5-5.1) mmol/L Chloride 102 (98-107) mmol/L Carbon Dioxide 24.0 (21.0-32.0) mmol/L Anion Gap 16.6 H (5.0-15.0) mmol/L BUN 8 (8-26) mg/dL Creatinine 0.80 (0.55-1.02) mg/dL Est Cr Clr Drug Dosing 77.27 mL/min Estimated GFR (MDRD) > 60 (>60) MLS/MIN BUN/Creatinine Ratio 10.0 (6-25) Glucose 127 H (74-100) mg/dL Calcium 9.3 (8.5-10.1) mg/dL Lipase 150 D (73-393) U/L SARS CoV-2 RNA Rapid RANDY Negative Meds: Medications Discontinued Medications Generic Name Dose Route Start Last Admin Trade Name Yeny PRN Reason Stop Dose Admin Acetaminophen 650 mg 07/27/20 08:06 07/27/20 08:08 Tylenol PO 07/27/20 08:07 650 mg NOW ONE Administration Acetaminophen Confirm 07/27/20 08:17 07/27/20 08:09 Tylenol Administered 07/27/20 08:18 Not Given Dose 650 mg .ROUTE .STK-MED ONE Al Hydroxide/Mg Hydroxide 30 ml 07/27/20 07:53 07/27/20 07:55 Gi Cocktail PO 07/27/20 07:54 30 ml ONETIME ONE Administration Departure - Departure Time of Disposition: 08:46 Disposition: Home, Self-Care 01 Condition: Good Clinical Impression: Anxiety Abdominal pain Qualifiers: Abdominal location: epigastric Qualified Code(s): R10.13 - Epigastric pain - Discharge Information *PRESCRIPTION DRUG MONITORING PROGRAM REVIEWED*: Not Applicable *COPY OF PRESCRIPTION DRUG MONITORING REPORT IN PATIENT CRISTOBAL: Not Applicable Instructions: Upper Endoscopy, Adult, Abdominal Pain, Adult, [id number] Referrals: PCP,None [Primary Care Provider] - Forms: ED Department Discharge Additional Instructions: Follow up with PCP if symptoms persist. Take your ativan as needed for anxiety. Have your endoscopy/colonscopy next week as planned. Take tylenol at home for pain. Return to ED for any increased or new concerning symptoms, or if your pain changes. - Assessment/Plan Assessment:: patient reports decrease in abdominal pain after GI cocktail, pain is now 5/10. We discussed having another abdominal CT and the radiation, since the pain has not increased or changed, the patient and I have decided to wait on the CT.
[2020-07-27 08:07] VITALS: BP 135/83; PULSE 86
[2020-07-27] MEDS: Acetaminophen 325 MG Tab PO ONE (08:08)
[2020-07-27] MEDS: Acetaminophen 325 MG Tab ONE (08:09)
== END 2020-07-27 08:46 | disposition home or self-care (01) ==
LOC: LB.ED 07:28
DX: R10.13 Epigastric pain (principal); F41.9 Anxiety disorder, unspecified; J44.9 Chronic obstructive pulmonary disease, unspecified; E03.9 Hypothyroidism, unspecified; Z79.899 Other long term (current) drug therapy; Z20.828 Contact with and (suspected) exposure to other viral communicable diseases; Z88.8 Allergy status to other drugs, medicaments and biological substances
CPT/HCPCS: 36415; 80048; 83690; 85025; 99283; 99284; A9270-GY; U0002

== ENCOUNTER 2020-09-04 11:20 | Emergency (ER) | payer MEDICARE ==
--- NOTE | 2020-09-04 12:32 | EDM.PDOC ---
ED HPI GENERAL MEDICAL PROBLEM - General Chief Complaint: Respiratory Problem Stated Complaint: POSSIBLE PNEUMONIA / COVID SYMPTOMS Time Seen by Provider: 09/04/20 11:30 Source of Information: Reports: Patient History Limitations: Reports: No Limitations - History of Present Illness INITIAL COMMENTS - FREE TEXT/NARRATIVE: patient with a h/o nicotine addiction. Cough for 3 days, chest congestion for 2 days, no fever or chills. Reports h/o bronchitis every year during the winter mainly. No nausea or emesis Patient still smoke 0.5-1 PPD. she reports she is bored and on disability, so that's why she is unable to quit smoking. Has an inhaler at home, that she used and helped with her symptoms. no h/o CAD. Onset: Sudden Duration: Day(s): (3) Location: Reports: Chest Improves with: Reports: Other (inhalor) - Related Data Allergies Allergy/AdvReac Type Severity Reaction Status Date / Time prednisone Allergy Anaphylactic Verified 02/29/20 09:38 Shock Home Meds: Home Meds Levothyroxine 150 mcg PO DAILY 11/21/19 [History] LORazepam [Ativan] 0.5 mg PO BID PRN 04/29/20 [History] Past Medical History - Past Health History Medical/Surgical History: Denies Medical/Surgical History HEENT History: Reports: Impaired Vision Respiratory History: Reports: Bronchitis, Recurrent, COPD Gastrointestinal History: Reports: Gastritis 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 Denies: Fever, Chills Respiratory: Reports: Shortness of Breath, Cough Cardiovascular: Reports: Dyspnea on Exertion Endocrine: Reports: No Symptoms Musculoskeletal: Reports: No Symptoms Skin: Reports: No Symptoms Neurological: Reports: No Symptoms Psychiatric: Reports: Anxiety ED EXAM, GENERAL - Physical Exam Exam: See Below Exam Limited By: No Limitations General Appearance: Alert, WD/WN, No Apparent Distress, Anxious Eye Exam: Bilateral Eye: PERRL Respiratory/Chest: No Respiratory Distress, No Accessory Muscle Use, Rhonchi Cardiovascular: Normal Peripheral Pulses, Regular Rate, Rhythm GI/Abdominal: Normal Bowel Sounds, Soft, Non-Tender Neurological: Alert, Oriented Psychiatric: Normal Affect, Normal Mood Course - Vital Signs Last Recorded V/S: Last Vital Signs Temp 37.3 C 09/04/20 12:57 Pulse 79 09/04/20 12:57 Resp 16 09/04/20 12:57 BP 137/89 09/04/20 12:57 Pulse Ox 99 09/04/20 12:57 - Orders/Labs/Meds Orders: Active Orders 24 hr Category Date Time Status Chest 1V Frontal [CR] Stat Exams 09/04/20 11:44 Taken Labs: Laboratory Tests 09/04/20 09/04/20 09/04/20 Range/Units 11:50 12:10 12:15 WBC 8.9 D (4.0-11.0) K/uL RBC 4.35 (3.80-5.80) M/uL Hgb 14.0 (11.5-16.5) g/dL Hct 41.7 (37.0-47.0) % MCV 96 (76-96) fL MCH 32.2 H (27.0-32.0) pg MCHC 33.6 (31.0-35.0) g/dL RDW 12.5 (11.0-16.0) % Plt Count 273 (150-500) K/uL MPV 8.0 (6.0-10.0) fL Neut % (Auto) 62.5 (45.0-70.0) % Lymph % (Auto) 29.8 (20.0-40.0) % [place] % (Auto) 6.4 (3.0-10.0) % Eos % (Auto) 1.0 (1.0-5.0) % Baso % (Auto) 0.3 (0.0-0.5) % Neut # (Auto) 5.55 (2.00-7.50) K/uL Lymph # (Auto) 2.65 (1.50-4.00) K/uL [place] # (Auto) 0.57 (0.20-0.80) K/uL Eos # (Auto) 0.09 (0.04-0.40) K/uL Baso # (Auto) 0.03 (0.02-0.10) K/uL D-Dimer, Quantitative < 100 (0-400) ng/mL Sodium (136-145) mmol/L Potassium (3.5-5.1) mmol/L Chloride (98-107) mmol/L Carbon Dioxide (21.0-32.0) mmol/L Anion Gap (5.0-15.0) mmol/L BUN (8-26) mg/dL Creatinine (0.55-1.02) mg/dL Est Cr Clr Drug Dosing mL/min Estimated GFR (MDRD) (>60) MLS/MIN BUN/Creatinine Ratio (6-25) Glucose (74-100) mg/dL Calcium (8.5-10.1) mg/dL Total Bilirubin (0.0-1.0) mg/dL AST (15-37) U/L ALT (12-78) U/L Alkaline Phosphatase (46-116) U/L Troponin I (0.000-0.060) ng/mL Total Protein (6.4-8.2) g/dL Albumin (3.4-5.0) g/dL Globulin (2.2-4.2) g/dL Albumin/Globulin Ratio (0.8-2.0) TSH, Ultra Sensitive (0.358-3.740) uIU/mL SARS CoV-2 RNA Rapid RANDY Negative 09/04/20 09/04/20 09/04/20 Range/Units 12:15 12:15 12:42 WBC (4.0-11.0) K/uL RBC (3.80-5.80) M/uL Hgb (11.5-16.5) g/dL Hct (37.0-47.0) % MCV (76-96) fL MCH (27.0-32.0) pg MCHC (31.0-35.0) g/dL RDW (11.0-16.0) % Plt Count (150-500) K/uL MPV (6.0-10.0) fL Neut % (Auto) (45.0-70.0) % Lymph % (Auto) (20.0-40.0) % [place] % (Auto) (3.0-10.0) % Eos % (Auto) (1.0-5.0) % Baso % (Auto) (0.0-0.5) % Neut # (Auto) (2.00-7.50) K/uL Lymph # (Auto) (1.50-4.00) K/uL [place] # (Auto) (0.20-0.80) K/uL Eos # (Auto) (0.04-0.40) K/uL Baso # (Auto) (0.02-0.10) K/uL D-Dimer, Quantitative (0-400) ng/mL Sodium 141 (136-145) mmol/L Potassium 3.5 (3.5-5.1) mmol/L Chloride 103 (98-107) mmol/L Carbon Dioxide 25.1 (21.0-32.0) mmol/L Anion Gap 16.4 H (5.0-15.0) mmol/L BUN 11 (8-26) mg/dL Creatinine 0.83 (0.55-1.02) mg/dL Est Cr Clr Drug Dosing 71.69 mL/min Estimated GFR (MDRD) > 60 (>60) MLS/MIN BUN/Creatinine Ratio 13.3 (6-25) Glucose 90 (74-100) mg/dL Calcium 9.3 (8.5-10.1) mg/dL Total Bilirubin 0.3 D (0.0-1.0) mg/dL AST 17 (15-37) U/L ALT 27 (12-78) U/L Alkaline Phosphatase 70 (46-116) U/L Troponin I < 0.017 (0.000-0.060) ng/mL Total Protein 7.4 (6.4-8.2) g/dL Albumin 4.1 (3.4-5.0) g/dL Globulin 3.3 (2.2-4.2) g/dL Albumin/Globulin Ratio 1.2 (0.8-2.0) TSH, Ultra Sensitive 1.835 D (0.358-3.740) uIU/mL SARS CoV-2 RNA Rapid RANDY Meds: Medications Discontinued Medications Generic Name Dose Route Start Last Admin Trade Name Freq PRN Reason Stop Dose Admin Albuterol/Ipratropium 3 ml 09/04/20 12:49 09/04/20 12:49 Duoneb 3.0-0.5 Mg/3 Ml NEB 09/04/20 12:50 3 ml ONETIME ONE Administration - Re-Assessments/Exams Free Text/Narrative Re-Assessment/Exam: connected to a monitor EKG NSR Vitals WNL, no hypoxia labs were ordered to rule out infections no leukocytosis, normal trop normal ddimer CXR - no pneumonia nebs was given - felt better afterward was d/cd home on medrol dose janette and zpak for bronchitis Departure - Departure Time of Disposition: 13:15 Disposition: Home, Self-Care 01 Condition: Good Clinical Impression: Bronchitis, Cough, Smoking - Discharge Information *PRESCRIPTION DRUG MONITORING PROGRAM REVIEWED*: Not Applicable *COPY OF PRESCRIPTION DRUG MONITORING REPORT IN PATIENT CRISTOBAL: Not Applicable Instructions: Azithromycin tablets, Prednisone tablets Referrals: PCP,None [Primary Care Provider] - Forms: ED Department Discharge Additional Instructions: Fill provided prescriptions today and begin taking as directed: Z-pack: 2 tablets by mouth today, then 1 tablet daily until all pills are gone. Prednisone: 6 tablets today, 5 tablets on 09/08/20, 4 tablets on 09/09/20, 3 tablets on 09/10/20, 2 tablets on 09/11/20, 1 tablet on 09/12/20, 09/13/20, 09/14/20, 09/15/20. Directions for inhaler use as follows: Pulmicort (Budesonide): 1 puff twice daily for 2 weeks. Albuterol: 2 puffs every 4-6 hours as needed for 2 weeks. Follow up in clinic with regular provider within next 1-2 weeks. Should you have any new or worsening of symptoms, return for further evaluation. Call with any questions. Sepsis Event Note (ED) - Evaluation Sepsis Screening Result: No Definite Risk - Focused Exam Vital Signs: Vital Signs Temp Pulse Resp BP Pulse Ox 09/04/20 12:57 37.3 C 79 16 137/89 99 09/04/20 12:08 37.2 C 77 18 138/73 100 - Problem List & Annotations (1) Bronchitis SNOMED Code(s): 71174051 Code(s): J40 - BRONCHITIS, NOT SPECIFIED ACUTE OR CHRONIC Status: Acute Priority: Medium (2) Cough SNOMED Code(s): 72579264 Code(s): R05 - COUGH Status: Acute Priority: Medium (3) Smoking SNOMED Code(s): 89642488 Code(s): F17.200 - NICOTINE DEPENDENCE, UNSPECIFIED, UNCOMPLICATED Status: Acute Priority: Medium - Problem List Review Problem List Initiated/Reviewed/Updated: Yes - My Orders Last 24 Hours: My Active Orders 09/04/20 11:44 Chest 1V Frontal [CR] Stat - Assessment/Plan Last 24 Hours: My Active Orders 09/04/20 11:44 Chest 1V Frontal [CR] Stat Plan: Fill provided prescriptions today and begin taking as directed: Z-pack: 2 tablets by mouth today, then 1 tablet daily until all pills are gone. Prednisone: 6 tablets today, 5 tablets on 09/08/20, 4 tablets on 09/09/20, 3 tablets on 09/10/20, 2 tablets on 09/11/20, 1 tablet on 09/12/20, 09/13/20, 09/14/20, 09/15/20. Directions for inhaler use as follows: Pulmicort (Budesonide): 1 puff twice daily for 2 weeks. Albuterol: 2 puffs every 4-6 hours as needed for 2 weeks. Follow up in clinic with regular provider within next 1-2 weeks. Should you have any new or worsening of symptoms, return for further evaluation. Call with any questions. smoking cessation was advised
[2020-09-04] MEDS: Albuterol/Ipratropium 3.0-0.5 MG/3 ML Neb Soln NEB ONE (12:49)
[2020-09-04 12:58] VITALS: BP 137/89; PULSE 79
--- NOTE | 2020-09-05 09:50 | CR ---
DATE OF SERVICE: 09/04/20 CLINICAL DATA: SOB/Cough AP CHEST: The heart size is normal. The lungs are clear. No pneumothorax. No pleural effusions. No evidence of acute intrathoracic disease. [id number] MTDD
== END 2020-09-04 13:25 | disposition home or self-care (01) ==
LOC: LB.ED 11:20
DX: J40 Bronchitis, not specified as acute or chronic (principal); F17.210 Nicotine dependence, cigarettes, uncomplicated; E03.9 Hypothyroidism, unspecified; Z88.8 Allergy status to other drugs, medicaments and biological substances; Z79.899 Other long term (current) drug therapy; Z20.822 Contact with and (suspected) exposure to COVID-19
CPT/HCPCS: 36415; 71045; 80053; 84443; 84484; 85025; 85379; 93005; 99284; 99285-25; J7620-GY; U0002

== ENCOUNTER 2021-03-18 08:34 | Emergency (ER) | payer MEDICAID, MEDICARE, OTHER ==
[2021-03-18] MEDS ORDERED: LORazepam 2 MG/ML SDV IVPUSH ONE ×2 (08:52→09:30)
--- NOTE | 2021-03-18 09:10 | EDM.PDOC ---
ED HPI GENERAL MEDICAL PROBLEM - General Chief Complaint: General Stated Complaint: shaking and abdominal pain Time Seen by Provider: 03/18/21 08:34 Source of Information: Reports: Patient History Limitations: Reports: No Limitations - History of Present Illness INITIAL COMMENTS - FREE TEXT/NARRATIVE: pt states suprapubic abdominal pain starting approx three days ago worsening today. coinciding symptoms of rhythmic shaking and tachypnea. she denies fever, chills, nausea, cough, shortness of breath. she is concerned that this is a reaction to covid vaccine with second dose on Mar. medical history of chronic diarrhea, anxiety, frequent UTI. - Related Data Allergies Allergy/AdvReac Type Severity Reaction Status Date / Time prednisone Allergy Anaphylactic Verified 02/29/20 09:38 Shock Home Meds: Home Meds Levothyroxine 150 mcg PO DAILY 11/21/19 [History] LORazepam [Ativan] 0.5 mg PO BID PRN 04/29/20 [History] Nitrofurantoin Monohyd/M-Cryst [Macrobid 100 mg Capsule] 100 mg PO BID 5 Days #10 capsule 03/18/21 [Rx] Past Medical History - Past Health History Medical/Surgical History: Denies Medical/Surgical History HEENT History: Reports: Impaired Vision Respiratory History: Reports: Bronchitis, Recurrent, COPD Gastrointestinal History: Reports: Gastritis 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 ED EXAM, GENERAL - Physical Exam Exam: See Below Exam Limited By: No Limitations General Appearance: Alert, WD/WN, Anxious Eye Exam: Bilateral Eye: EOMI, PERRL Throat/Mouth: Normal Inspection, Normal Lips, Normal Teeth, Normal Oropharynx, Normal Voice, No Airway Compromise Neck: Normal Inspection Respiratory/Chest: No Respiratory Distress, Lungs Clear, Normal Breath Sounds, Chest Non-Tender Cardiovascular: Normal Peripheral Pulses, Regular Rate, Rhythm, No Edema, No Murmur Peripheral Pulses: 2+: Radial (L), Radial (R), Posterior Tibial (L), Posterior Tibial (R) GI/Abdominal: Normal Bowel Sounds, Soft, No Distention, Tender (suprapubic ) Back Exam: Normal Inspection, Full Range of Motion Extremities: Normal Inspection, Normal Range of Motion, No Pedal Edema Neurological: Alert, Oriented Psychiatric: Normal Affect, Normal Mood Skin Exam: Warm, Dry, Intact, Normal Color, No Rash Departure - Departure Time of Disposition: 10:50 Disposition: Home, Self-Care 01 Condition: Good Clinical Impression: Cystitis - Discharge Information *PRESCRIPTION DRUG MONITORING PROGRAM REVIEWED*: No *COPY OF PRESCRIPTION DRUG MONITORING REPORT IN PATIENT CRISTOBAL: No Instructions: Urinary Tract Infection, Adult Additional Instructions: drink at least 10 cups of water a day take time to totally empty your bladder antibiotics: macrobid 100mg twice a day to be picked up at [facility] in [place] no other signs of infection in your belly on CT. if you completely empty your bladder, you will have less back pain and abdominal distention. highly unlikely these symptoms were because of the covid vaccine, more likely they were the bladder infection and part anxiety. - Problem List & Annotations (1) Cystitis SNOMED Code(s): 09040210 Code(s): N30.90 - CYSTITIS, UNSPECIFIED WITHOUT HEMATURIA Status: Acute - Problem List Review Problem List Initiated/Reviewed/Updated: Yes - Assessment/Plan Assessment:: assessment: cystitis/UTI plan: drink more water. rocephin today start macrobid tomorrow totally empty bladder throughout the day to experience less referred pain and abdominal distension.
[2021-03-18 09:20] VITALS: BP 156/83; PULSE 87
[2021-03-18] MEDS ORDERED: Sodium Chloride 0.9% 50 ML SDV FLUSH ONE (09:36)
[2021-03-18] MEDS ORDERED: cefTRIAXone 1 GM Vial IVPUSH ONE (09:42)
[2021-03-18] MEDS ORDERED: Iopamidol 612 MG/ML 100 ML Bottle IV SCH (09:45)
--- NOTE | 2021-03-19 10:52 | CT ---
DATE OF SERVICE: 03/18/2021 CLINICAL DATA: Abdominal Pain Enhanced abdomen and pelvic CT: Multi slice acquisition with IV, but without oral contrast was performed. Comparison is made to a prior exam dated 09 October 2020. There are minimal atelectatic changes in both lung bases. The lung bases are otherwise clear. The heart size is normal. The liver is normal size with homogeneous attenuation. There are calcifications within the liver consistent with prior granulomatous disease. The liver otherwise appears normal. The gallbladder appears normal. No calcified gallstones. No biliary duct dilation. The spleen appears normal. There is a 1.5 cm nodule adjacent to the posterior aspect of the spleen consistent with accessory spleen. The pancreas appears normal. The right and left adrenals appear normal. There are benign-appearing cysts in both kidneys. The kidneys enhance symmetrically. No hydronephrosis or hydroureter. The bladder is fluid filled. It appears normal. No evidence of appendicitis. No free air. No free fluid. No dilated loops of bowel. No adenopathy. No aortic aneurysm or dissection. There is degenerative disc disease at multiple levels in the lower thoracic and lumbar spine. There is grade 1 anterolisthesis of L5 on S1. MTDD
== END 2021-03-18 11:06 | disposition home or self-care (01) ==
LOC: LB.ED 08:34
DX: N30.90 Cystitis, unspecified without hematuria (principal); E03.9 Hypothyroidism, unspecified; J44.9 Chronic obstructive pulmonary disease, unspecified; Z79.899 Other long term (current) drug therapy; Z88.8 Allergy status to other drugs, medicaments and biological substances
CPT/HCPCS: 36415; 74177; 80053; 81001; 85025; 87086; 96374; 96375; 96376; 99284; J0696; J2060; Q9967

== ENCOUNTER 2022-10-02 09:00 | Emergency (ER) | payer MEDICARE ==
[2022-10-02] MEDS: Ondansetron 4 MG Tab.DIS ONE (09:31)
[2022-10-02] MEDS: Ondansetron 4 MG Tab.DIS PO ONE (09:31)
[2022-10-02] MEDS: Ketorolac 60 MG/2 ML SDV IM ONE (09:34)
[2022-10-02] MEDS: Ketorolac 60 MG/2 ML SDV ONE (09:34)
[2022-10-02 09:35] VITALS: BP 166/83; PULSE 83
== END 2022-10-02 11:22 | disposition home or self-care (01) ==
LOC: LB.ED 09:00
DX: R10.11 Right upper quadrant pain (principal); R10.31 Right lower quadrant pain; R10.32 Left lower quadrant pain; J44.9 Chronic obstructive pulmonary disease, unspecified; E03.9 Hypothyroidism, unspecified; Z72.0 Tobacco use; Z88.8 Allergy status to other drugs, medicaments and biological substances; Z79.899 Other long term (current) drug therapy
CPT/HCPCS: 36415; 74176; 80053; 81001; 83690; 85025; 96372; 99284; J1885; Q0162

== ENCOUNTER 2025-07-08 04:19 | Emergency (ER) | payer MEDICARE ==
[2025-07-08] MEDS ORDERED: Sodium Chloride 0.9% 10 ML Syringe FLUSH PRN (04:33)
[2025-07-08] MEDS: Ondansetron 4 MG/2 ML SDV IVPUSH ONE (04:47)
[2025-07-08 05:08] LABS: BASOPHILS ABSOLUTE AUTO 0.02 K/uL (0.02-0.10); BASOPHILS PERCENT AUTO 0.3 % (0.0-0.5); EOSINOPHILS ABSOLUTE AUTO 0.15 K/uL (0.04-0.40); EOSINOPHILS PERCENT AUTO 2.1 % (1.0-5.0); LYMPHOCYTES ABSOLUTE AUTO 2.75 K/uL (1.50-4.00); LYMPHOCYTES PERCENT AUTO 39.4 % (20.0-40.0); MEAN PLATELET VOLUME 8.0 fL (6.0-10.0); MONOCYTES ABSOLUTE AUTO 0.44 K/uL (0.20-0.80); MONOCYTES PERCENT AUTO 6.3 % (3.0-10.0); NEUTROPHILS ABSOLUTE AUTO 3.62 K/uL (2.00-7.50); NEUTROPHILS PERCENT AUTO 51.9 % (45.0-70.0); PLATELET COUNT,PLT 272 K/uL (150-500); RED BLOOD CELL COUNT 4.55 M/uL (3.80-5.80); RED CELL DISTRIBUTION WIDTH 13.2 % (11.0-16.0); WHITE BLOOD CELL COUNT,WBC 7.0 K/uL (4.0-11.0)
[2025-07-08 05:12] LABS: APPEARANCE,URINE CLEAR (CLEAR); GLUCOSE,URINE NEGATIVE (NEGATIVE); OCCULT BLOOD,URINE TRACE-INTACT (NEGATIVE)
[2025-07-08 05:22] LABS: SQUAMOUS EPITHELIAL CELLS,UR FEW /HPF
[2025-07-08 05:23] LABS: A/G RATIO 1.2 (0.8-2.0); ALANINE AMINOTRANSFERASE,ALT 17.0 U/L (12-78); ASPARTATE AMNIOTRANSFERASE,AST 14.0 U/L (15-37); BILIRUBIN TOTAL 0.4 mg/dL (0.0-1.0); BLOOD UREA NITROGEN,BUN 12.0 mg/dL (8-26); CARBON DIOXIDE,CO2 22.4 mmol/L (21.0-32.0); CHLORIDE,CL 104.0 mmol/L (98-107); CREATININE 0.73 mg/dL (0.55-1.02); EST CRCL DRUG DOSING (CG) 76.72 mL/min; ESTIMATED GFR 94.0 mL/min (>60); GLUCOSE RANDOM 103.0 mg/dL (74-100); POTASSIUM,K 3.8 mmol/L (3.5-5.1); PROTEIN TOTAL,TP 7.6 g/dL (6.4-8.2); SODIUM,NA 138.0 mmol/L (136-145)
[2025-07-08] MEDS: Ketorolac 15 MG/ML SDV IVPUSH ONE (08:13)
[2025-07-08] MEDS ORDERED: Acetaminophen/oxyCODONE 325-5 MG Tab ONE (08:30)
[2025-07-08 08:48] VITALS: BP 127/74; PULSE 94
== END 2025-07-08 08:40 | disposition home or self-care (01) ==
LOC: LB.ED 04:19
DX: S39.012A Strain of muscle, fascia and tendon of lower back, initial encounter (principal); I10 Essential (primary) hypertension; J44.9 Chronic obstructive pulmonary disease, unspecified; E03.9 Hypothyroidism, unspecified; F17.210 Nicotine dependence, cigarettes, uncomplicated; Z88.8 Allergy status to other drugs, medicaments and biological substances; Z79.890 Hormone replacement therapy; Z79.899 Other long term (current) drug therapy; X58.XXXA Exposure to other specified factors, initial encounter
CPT/HCPCS: 36415; 74176; 80053; 81001; 85025; 96361; 96374; 96375; 96376; 99284-25; A9270-GY; J1171; J1885; J2405; J7030